=== PATIENT | female | born 1990 | race Caucasian/White ===

== ENCOUNTER 2020-10-28 10:26 | Outpatient (CLI) | payer OTHER | END 2020-10-28 10:34 | disposition home or self-care (01) | LOC: RX STUDY 10:26 | PROVIDERS: ATTEND Obstetrics & Gynecology | DX: N93.8 Other specified abnormal uterine and vaginal bleeding (principal); N97.0 Female infertility associated with anovulation ==

== ENCOUNTER 2021-06-14 08:19 | Outpatient (CLI) | payer OTHER | END 2021-06-14 08:30 | disposition home or self-care (01) | LOC: RX STUDY 08:19 | PROVIDERS: ATTEND Specialist | DX: N84.0 Polyp of corpus uteri (principal) ==